=== PATIENT | female | born 1965 | race Caucasian/White ===

== ENCOUNTER → 2017-03-09 | Outpatient (CLI) | payer OTHER ==
--- NOTE | 2017-03-10 10:29 | MRI ---
EXAM DESCRIPTION: Knee,Left: MRI. CLINICAL HISTORY: KNEE PAIN. Fell 4 months ago and struck left knee. Pain radiates from the patella to medial side. COMPARISON: None. TECHNIQUE: Multiplanar, high-field MRI, multiple sequences, without contrast: Left knee. FINDINGS: Increased signal diffusely in the anterior horn and posterior horn of the medial meniscus. This signal extends to the superior articular surface of the anterior horn. Also partial tear of the anterior central root attachment. In addition, there is free edge blunting of the body seen on the coronal view. Minimal effusion in the medial compartment. Moderate chondromalacia medial condyle and minimal chondromalacia medial plateau. Minimal amount of Subchondral edema abutting the anterior horn. Increased signal without evidence of tear in the anterior horn lateral meniscus. Small spur mid lateral condyle on the articular surface with moderate cartilage loss but no subchondral edema. Minimal cartilage loss lateral plateau. Minimal marrow edema in the deeper outer marrow of the lateral plateau. Minimal effusion lateral compartment. Anterior cruciate and posterior cruciate ligaments are intact. Minimal intercruciate space effusion. Medial collateral ligament and elements of the lateral collateral ligament complex are unremarkable. Minimal soft tissue edema posterior medial region. Intermediate signal in the distal quadriceps tendon and the proximal patellar tendon. Edema anterior to the inferior patella and the patellar tendon insertion on the tibia. Minimal edema in the infrapatellar fat pad. Minimal suprapatellar effusion. 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 Minimal chondromalacia in the femoral trochlea. Medial and lateral patellar soft tissue restraints are intact. IMPRESSION: 1. Degeneration of the medial meniscus and horizontal superior tear of the anterior horn. Adjacent minimal subchondral edema and cartilage loss could Represent grade 4 chondrosis. Partial tear anterior central root attachment. Free edge tear of the body of the medial meniscus. Medial compartment effusion. 2. 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 Minimal lateral effusion. 3. 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 No definite loose bodies. No trochlear lesions. No patellar fracture. 4. Mild to moderate strain of the distal quadriceps tendon. Prepatellar edema or bursitis. Electronically signed by: Nadir Alvarado MD 03/10/2017 10:28 AM [facility] [place]
== END | disposition home or self-care (01) ==
LOC: MRI 10:54
PROVIDERS: ATTEND Nurse Practitioner Family
DX: S83.204A Other tear of unspecified meniscus, current injury, left knee, initial encounter (principal); M94.262 Chondromalacia, left knee